=== PATIENT | female | born 1985 | race Caucasian/White ===

== ENCOUNTER 2018-12-27 10:25 | Emergency (ER) | payer OTHER ==
[~2018-12-27] VITALS: Ht 175.3 cm; Wt 86.6 kg
[2018-12-27] MEDS ORDERED: LOSARTAN-HCTZ1 EACH (10:36)
[2018-12-27] MEDS ORDERED: DICLOFENAC SODI75 MG PO (11:01)
== END 2018-12-27 11:12 | disposition home or self-care (01) ==
LOC: ER 10:25
DX: M94.0 Chondrocostal junction syndrome [Tietze] (principal)